=== PATIENT | female | born 2000 | race Caucasian/White ===

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

== ENCOUNTER 2019-06-13 21:02 | Emergency (ER) | payer BC ==
[~2019-06-13] VITALS: Ht 165.1 cm; Wt 56.8 kg
[2019-06-13 21:13] VITALS: Ht 165.1 cm; Wt 56.8 kg
[2019-06-13] MEDS ORDERED: IUD (21:14)
[2019-06-13 22:01] LABS: BASOPHILS 0.2 % (0-2); EOSINOPHILS 0.4 % (0-7); HEMATOCRIT 41.4 % (36.0-48.0); HEMOGLOBIN 13.9 g/dL (12-16); IMMATURE GRANULOCYTES 0.2 % (0-5); LYMPHOCYTES 25.6 % (15-50); MCH 29.6 pg (26.0-34.0); MCHC 33.6 g/dL (31.0-37.0); MCV 88.3 fL (80.0-100.0); MEAN PLATELET VOLUME 11.9 fL (7.4-10.4); MONOCYTES 8.8 % (2-11); NEUTROPHILS 64.8 % (40-80); PLATELET COUNT 239 10x3/uL (130-400); RBC 4.69 10x6/uL (4.00-5.40); RDW 12.8 % (11.5-14.5); WBC 12.9 10x3/uL (4.8-10.8)
[2019-06-13 22:04] LABS: APPEARANCE CLEAR (CLEAR); BILIRUBIN NEGATIVE (NEGATIVE); COLOR STRAW (YELLOW); GLUCOSE NEGATIVE (NEGATIVE); HCG URINE NEGATIVE (NEGATIVE); KETONE NEGATIVE (NEGATIVE); NITRITE NEGATIVE (NEGATIVE); PROTEIN NEGATIVE (NEGATIVE); SPECIFIC GRAVITY 1.005 (1.005-1.020); UROBILINOGEN NORMAL (NORMAL)
[2019-06-13 22:06] LABS: RED CELLS - URINE 0-5 /hpf (0-5); WHITE CELLS - URINE 0-5 /hpf (NEGATIVE)
[2019-06-13 22:07] LABS: BACTERIA FEW /hpf (NEGATIVE); EPITHELIAL CELLS 0-5 /hpf (0-5)
[2019-06-13 22:07] LABS: CALC OSMOLALITY 277 mosm/kg (275-300); CALCIUM 9.3 mg/dL (8.5-10.1); CARBON DIOXIDE 23.7 mmol/L (21.0-32.0); CHLORIDE - SERUM 106 mmol/L (98-107); CREATININE - SERUM 0.7 mg/dL (0.6-1.3); GLUCOSE 79 mg/dL (74-106); POTASSIUM - SERUM 3.5 mmol/L (3.5-5.1); SODIUM 140 mmol/L (136-145); UREA NITROGEN 12 mg/dL (7-18); eGFR NON AFRICAN AMERICAN > 90 mL/min (90-120)
[2019-06-13 22:14] LABS: ALBUMIN 4.1 g/dL (3.4-5.0); ALKALINE PHOSPHATASE 91 U/L (46-116); ALT (SGPT) 18 U/L (10-68); PROTEIN - SERUM 8.2 g/dL (6.4-8.2)
[2019-06-13] MEDS ORDERED: DIFLUCAN100 MG PO (22:56)
[2019-06-13] MEDS ORDERED: FLAGYL500 MG PO (22:56)
[2019-06-13 23:10] VITALS: BP 137/74
== END 2019-06-13 23:10 | disposition home or self-care (01) ==
LOC: D.ER 21:02
PROVIDERS: Family Medicine
DX: R10.2 Pelvic and perineal pain (principal); B37.3 Candidiasis of vulva and vagina

== ENCOUNTER → 2019-06-28 13:31 | Outpatient (CLI) | payer BC ==
[2019-06-13 21:13] VITALS: BMI 20.8
[~2019-06-28 13:31] MED LIST: DIFLUCAN100 MG PO; FLAGYL500 MG PO; IUD
== END | disposition home or self-care (01) ==
LOC: D.MRI 11:00
PROVIDERS: ATTEND Student in an Organized Health Care Education/Training Program
DX: N89.8 Other specified noninflammatory disorders of vagina (principal)

== ENCOUNTER → 2020-09-04 10:50 | Outpatient (CLI) | payer SELFPAY ==
[2019-06-13 21:13] VITALS: BMI 20.8
== END | disposition home or self-care (01) ==
LOC: D.LAB 10:50
PROVIDERS: ATTEND Nurse Practitioner Family
DX: Z11.52 Encounter for screening for COVID-19 (principal)

== ENCOUNTER → 2020-09-09 13:48 | Outpatient (CLI) | payer SELFPAY ==
[2019-06-13 21:13] VITALS: BMI 20.8
== END | disposition home or self-care (01) ==
LOC: D.RT 13:48
PROVIDERS: ATTEND Internal Medicine Pulmonary Disease
DX: R06.09 Other forms of dyspnea (principal)